=== PATIENT | male | born 1990 | race Caucasian/White ===

== ENCOUNTER 2018-09-10 02:21 | Emergency (ER) | payer OTHER ==
[~2018-09-10] VITALS: Ht 177.8 cm; Wt 79.4 kg
[~2018-09-10 02:21] MED LIST: IBUPROFEN 600600 M1 PO; IBUPROFEN 800800 MG PO; NOHOMEMEDICATIONS; NORCO 5-325 TA1 EACH PO; PERCOCET 5-3251 EACH PO; ULTRAM 50MG TAB50 MG PO; VALIUM5 MG PO; VICODIN 5-5001 EACH PO; ZOFRAN ODT4 MG PO
[2018-09-10] MEDS ORDERED: BACTRIM DS TAB1 EACH PO (03:29)
[2018-09-10] MEDS ORDERED: BACTROBAN NASAL1 GM NASAL (03:29)
[2018-09-10 03:57] VITALS: BP 140/94
== END 2018-09-10 03:57 | disposition home or self-care (01) ==
LOC: M.ERS 02:21
DX: J32.9 Chronic sinusitis, unspecified (principal); F17.200 Nicotine dependence, unspecified, uncomplicated